=== PATIENT | female | born 1995 | race American Indian/Alaskan Native ===

== ENCOUNTER 2020-08-27 04:57 | Emergency (ER) | payer MEDICAID ==
[2020-08-27] MEDS ORDERED: ACETAMINOPHEN 325 MG TAB PO ONE (06:47)
[2020-08-27] MEDS ORDERED: ONDANSETRON 4 MG ODT TAB ONE (06:52)
[2020-08-27] MEDS ORDERED: ONDANSETRON 4 MG ODT TAB PO ONE (06:55)
[2020-08-27 07:48] LABS: Basophils % (Auto) 0.2 % (0.0-1.8); Hematocrit 37.8 % (30.3-42.9); Hemoglobin 12.4 gm/dl (10.1-14.3); Lymphocytes # (Auto) 1.4 K/mm3 (1.2-5.4); Lymphocytes % (Auto) 12.8 % (13.4-35.0); Mean Corpuscular HGB Conc 33 % (30-34); Mean Corpuscular Volume 81 fl (79-97); Monocytes % (Auto) 9.1 % (0.0-7.3); Platelet Count 265 K/mm3 (140-440); Red Blood Count 4.65 M/mm3 (3.65-5.03); Red Cell Distribution Width 14.5 % (13.2-15.2)
[2020-08-27 07:54] LABS: Alanine Aminotransferase 8 units/L (7-56); Albumin 4.2 g/dL (3.9-5); Blood Urea Nitrogen 7 mg/dL (7-17); Hemolysis Index 7
[2020-08-27 07:58] LABS: BUN/Creatinine Ratio 12
--- NOTE | 2020-08-27 08:19 | Emergency Department Report ---
ED Abdominal Pain HPI - General Chief Complaint: Abdominal Pain Stated Complaint: ABD PAIN/CHILLS/EMESIS Time Seen by Provider: 08/27/20 07:49 Source: patient Mode of arrival: Ambulatory Limitations: No Limitations - History of Present Illness Initial Comments: 25-year-old female with no significant past medical history presents to the ER today with complaints of abdominal pain. Patient states that her symptoms started Monday evening which was 2 days ago. She states that the pain is mainly left side of abdomen and lower abdomen and it had been constant and crampy in nature. She reports associated nausea and vomiting intermittently since Monday. She denies any associated diarrhea. She denies any UTI or vaginal symptoms. She states that her symptoms started after eating [place] food earlier that day. She does admit that the food tasted bad and stopped eating when she noticed that. She denies any fever or chills at home. She denies any hematemesis, melena, hematochezia or mucus in her stool. She denies any ill contacts or recent travel. She denies any cough or URI symptoms. Her last menstrual cycle was August 18 and was normal. She is not currently on control. She states that since she has been in the ER her symptoms have improved since receiving the Zofran and the Tylenol in triage. She has been sipping on some ice water and has been tolerating it well. MD Complaint: abdominal pain -: days(s) Location: LUQ, LLQ, RLQ, suprapubic Severity scale (0 -10): 5 - Related Data Previous Rx's Medication Instructions Recorded Last Taken Type Ibuprofen [Motrin] 800 mg PO Q8HR PRN #30 tablet 08/27/20 Unknown Rx Ondansetron [Zofran Odt] 4 mg PO Q8HR PRN #15 tab.rapdis 08/27/20 Unknown Rx cephALEXin [Keflex] 500 mg PO Q6HR #40 capsule 08/27/20 Unknown Rx Allergies Allergy/AdvReac Type Severity Reaction Status Date / Time No Known Allergies Allergy Unverified 08/27/20 06:40 ED Review of Systems ROS: Stated complaint: ABD PAIN/CHILLS/EMESIS Other details as noted in HPI Comment: All other systems reviewed and negative Constitutional: denies: chills, fever Eyes: denies: eye pain, eye discharge, vision change ENT: denies: ear pain, throat pain, dental pain, hearing loss, epistaxis, con gestion Respiratory: denies: cough, orthopnea, shortness of breath, SOB with exertion, SOB at rest, wheezing Cardiovascular: denies: chest pain, palpitations, dyspnea on exertion, edema, syncope, paroxysmal nocturnal dyspnea Gastrointestinal: abdominal pain, nausea, vomiting Genitourinary: denies: urgency, dysuria, discharge Musculoskeletal: denies: back pain, joint swelling, arthralgia Skin: denies: rash, lesions, change in color, change in hair/nails, pruritus Neurological: denies: headache, weakness, numbness, paresthesias, confusion, abnormal gait, vertigo Psychiatric: denies: anxiety, depression, auditory hallucinations, visual hallucinations, homicidal thoughts, suicidal thoughts Hematological/Lymphatic: denies: easy bleeding, easy bruising, swollen glands ED Past Medical Hx - Past Medical History Previous Medical History?: No - Surgical History Past Surgical History?: No - Medications Home Medications: Home Medications Medication Instructions Recorded Confirmed Last Taken Type Ibuprofen [Motrin] 800 mg PO Q8HR PRN #30 tablet 08/27/20 Unknown Rx Ondansetron [Zofran Odt] 4 mg PO Q8HR PRN #15 tab.rapdis 08/27/20 Unknown Rx cephALEXin [Keflex] 500 mg PO Q6HR #40 capsule 08/27/20 Unknown Rx ED Physical Exam - General Limitations: No Limitations General appearance: alert, in no apparent distress - Head Head exam: Present: atraumatic, normocephalic, normal inspection - Eye Eye exam: Present: normal appearance, PERRL, EOMI Pupils: Present: normal accommodation - ENT ENT exam: Present: normal exam, mucous membranes moist - Neck Neck exam: Present: normal inspection, full ROM. Absent: meningismus - Respiratory Respiratory exam: Present: normal lung sounds bilaterally. Absent: respiratory distress - Cardiovascular Cardiovascular Exam: Present: regular rate, normal rhythm, normal heart sounds - GI/Abdominal GI/Abdominal exam: Present: soft. Absent: distended, tenderness, guarding, rebound - Back Exam Back exam: Present: normal inspection, full ROM. Absent: CVA tenderness (R), CVA tenderness (L) - Neurological Exam Neurological exam: Present: alert, oriented X3, CN II-XII intact, normal gait - Psychiatric Psychiatric exam: Present: normal affect, normal mood - Skin Skin exam: Present: intact ED Course Vital Signs 08/27/20 08/27/20 08/27/20 06:41 06:56 09:02 Temperature 100.8 F H 98.5 F Pulse Rate 111 H 102 H Respiratory 20 20 15 Rate Blood Pressure 132/61 101/60 [Right] O2 Sat by Pulse 99 100 Oximetry ED Medical Decision Making - Lab Data Result diagrams: 08/27/20 06:54 08/27/20 06:54 - Medical Decision Making 0911: Labs reviewed - CBC/CMP unremarkable. HCG negative. UA + uti, culture pending Pt currently resting comfortably and reports feeling better. He has not had any vomiting since receiving the Zofran and triage upon arrival and she has been tolerating water well. She is not toxic or ill-appearing. She appears hydrated. She currently has a soft nontender abdomen and no CVA tenderness. Repeat value shows improvement of her tachycardia and a temperature. Her history, exam and diagnostic testing and current condition does not suggest acute appendicitis, acute cholecystitis, bowel perforation, diverticulitis, kidney stone, severe pyelonephritis, sepsis or any other significant pathology warranting further testing, continued ED treatment, admission or surgical evaluation at this point. Discussed lab results, diagnosis and treatment plan with patient Patient expressed understanding of instructions and agree with plan. Patient was stable at time of discharge. Critical care attestation.: If time is entered above; I have spent that time in minutes in the direct care of this critically ill patient, excluding procedure time. ED Disposition Clinical Impression: UTI (urinary tract infection) Disposition: DC-01 TO HOME OR SELFCARE Is pt being admited?: No Does the pt Need Aspirin: No Condition: Stable Instructions: Urinary Tract Infection, Adult, [id number], Abdominal Pain (ED) Additional Instructions: I recommend that you take the Keflex as prescribed and take it to completion. Take the Motrin and the Zofran as prescribed to help with pain. Recommend that you drink lots of water. Follow-up closely with your primary care doctor. Return to the ER if your symptoms changes or worsens in any way. Prescriptions: cephALEXin [Keflex] 500 mg PO Q6HR #40 capsule Ibuprofen [Motrin] 800 mg PO Q8HR PRN #30 tablet PRN Reason: Pain Ondansetron [Zofran Odt] 4 mg PO Q8HR PRN #15 tab.rapdis PRN Reason: Vomiting Referrals: CARMELO BRO MD [Staff Physician] - 3-5 Days Forms: Work/School Release Form(ED) Time of Disposition: 09:09
[2020-08-27 08:39] LABS: Bacteria,Urine 3+ /HPF (Negative); Bilirubin,Urine NEG (Negative); Blood,Urine MOD (Negative); Color,Urine Yellow (Yellow); Mucus,Urine 3+ /HPF
[2020-08-27] MEDS ORDERED: cephALEXin 500 MG CAP PO ONE (08:54)
[2020-08-27 09:03] VITALS: BP 101/60
== END 2020-08-27 09:15 | disposition home or self-care (01) ==
LOC: ED 04:57
DX: N39.0 Urinary tract infection, site not specified (principal); Z79.899 Other long term (current) drug therapy
CPT/HCPCS: 36415; 80053; 81001; 83690; 84703; 85025; 87076; 87086; 87186; 99283; Q0162

== ENCOUNTER 2021-09-04 01:19 | Emergency (ER) | payer MEDICAID ==
[2021-09-04 03:00] LABS: Basophils % (Auto) 0.5 % (0.0-1.8); Eosinophils % (Auto) 0.4 % (0.0-4.3); Hematocrit 38.4 % (30.3-42.9); Hemoglobin 12.6 gm/dl (10.1-14.3); Lymphocytes # (Auto) 1.5 K/mm3 (1.2-5.4); Lymphocytes % (Auto) 16.7 % (13.4-35.0); Mean Corpuscular HGB Conc 33 % (30-34); Mean Corpuscular Volume 80 fl (79-97); Monocytes # (Auto) 0.6 K/mm3 (0.0-0.8); Monocytes % (Auto) 6.5 % (0.0-7.3); Platelet Count 311 K/mm3 (140-440); Red Blood Count 4.82 M/mm3 (3.65-5.03); Red Cell Distribution Width 14.9 % (13.2-15.2)
[2021-09-04 03:16] LABS: Alanine Aminotransferase 9 units/L (7-56); Albumin 4.3 g/dL (3.9-5); Blood Urea Nitrogen 8 mg/dL (7-17); Calcium 9.6 mg/dL (8.4-10.2); Hemolysis Index 0
[2021-09-04 03:33] LABS: BUN/Creatinine Ratio 13
[2021-09-04 05:14] LABS: Bilirubin,Urine NEG (Negative); Blood,Urine MOD (Negative); Color,Urine Yellow (Yellow); Protein,Urine <15 mg/dL mg/dL (Negative); Urobilinogen,Urine < 2.0 mg/dL (<2.0)
[2021-09-04 05:16] LABS: Bacteria,Urine 1+ /HPF (Negative); Mucus,Urine 3+ /HPF
[2021-09-04] MEDS ORDERED: ONDANSETRON 4 MG/2 ML INJ IV ONE (07:38)
[2021-09-04] MEDS ORDERED: SODIUM CHLORIDE 0.9% 1000 ML 1,000 ML IV ONE (07:38)
[2021-09-04] MEDS ORDERED: MORPHINE 4 MG/1 ML INJ IV ONE (07:39)
--- NOTE | 2021-09-04 08:39 | Cat Scan Report ---
CT ABDOMEN AND PELVIS WITH IV CONTRAST INDICATION: abd/ pelvis radiating to right flank. COMPARISON: None available. TECHNIQUE: All CT scans at this facility use dose modulation, automated exposure control, iterative reconstructi on or weight based dosing, when appropriate, to reduce radiation dose to as low as reasonably achieva ble. FINDINGS: Lung Bases: No significant abnormality. Skeletal System: No acute abnormality. ABDOMEN: Liver: No significant abnormality. Gallbladder: No significant abnormality. Bile Ducts: No significant abnormality. Adrenals: No significant abnormality. Right Kidney: No significant abnormality. Left Kidney: No significant abnormality. Pancreas: No significant abnormality. Spleen: No significant abnormality. Upper GI tract: No significant abnormality. Lymph Nodes: No significant adenopathy. Aorta: No significant abnormality. Additional Findings: No significant abnormality. PELVIS: Colon: No significant abnormality. Urinary Bladder and Distal Ureters: No significant abnormality. Appendix: No significant abnormality. Lymph Nodes: No significant adenopathy. Additional Findings: Terminal ileum is unremarkable. IMPRESSION: 1. No acute process in the abdomen or pelvis. Signer Name: Sylvain Parada MD Signed: 09/04/2021 8:34 AM Workstation Name: [id number]
[2021-09-04] MEDS ORDERED: cefTRIAXone/NS 1 GM/50 ML 1 GM/50 ML BAG IV ONE (08:45)
--- NOTE | 2021-09-04 08:50 | Emergency Department Report ---
ED Abdominal Pain HPI - General Chief Complaint: Abdominal Pain Stated Complaint: ABD PAIN,CHILLS,CRAMPS,HEADACHE Source: patient Mode of arrival: Ambulatory Limitations: No Limitations - History of Present Illness Initial Comments: 26-year-old female presents to the ED complaining of abdominal pain x2 days. She states this pain is radiating to her right flank area. She complain of nausea and vomiting x2 days. Patient states that she has active vomiting 1 hour prior to me entering the room. Patient is alert and oriented x3. She states last menstrual cycle 1 week ago. Patient is states pain is a current 8 out of 10. Patient states pain is worse with urination. She denies any vaginal discharge or vaginal bleeding at present time. Patient is alert and oriented x3. No acute distress noted. No ill appearance noted. Onset/Timin -: Gradual, days(s) Location: diffuse Radiation: none Severity scale (0 -10): 8 Quality: aching Consistency: intermittent Improves With: nothing Worsens With: nothing Associated Symptoms: nausea, vomiting - Related Data Previous Rx's Medication Instructions Recorded Last Taken Type Ibuprofen [Motrin] 800 mg PO Q8HR PRN #30 tablet 08/27/20 Unknown Rx Ondansetron [Zofran Odt] 4 mg PO Q8HR PRN #15 tab.rapdis 08/27/20 Unknown Rx cephALEXin [Keflex] 500 mg PO Q6HR #40 capsule 08/27/20 Unknown Rx Dicyclomine [Bentyl] 20 mg PO QID 5 Days #20 tablet 09/04/21 Unknown Rx Promethazine [Phenergan] 25 mg PO Q6HR PRN 5 Days #20 tab 09/04/21 Unknown Rx Sulfamethoxazole/Trimethoprim 1 each PO BID 10 Days #20 tab 09/04/21 Unknown Rx [Bactrim DS TAB] Allergies Allergy/AdvReac Type Severity Reaction Status Date / Time No Known Allergies Allergy Unverified 08/27/20 06:40 ED Review of Systems ROS: Stated complaint: ABD PAIN,CHILLS,CRAMPS,HEADACHE Other details as noted in HPI Constitutional: denies: chills, fever Eyes: denies: eye pain, eye discharge, vision change ENT: denies: ear pain, throat pain Respiratory: denies: cough, shortness of breath, wheezing Cardiovascular: denies: chest pain, palpitations Endocrine: no symptoms reported Gastrointestinal: abdominal pain, nausea, vomiting. denies: diarrhea Genitourinary: dysuria. denies: urgency, discharge Musculoskeletal: denies: back pain, joint swelling, arthralgia Skin: denies: rash, lesions Neurological: denies: headache, weakness, paresthesias Psychiatric: denies: anxiety, depression Hematological/Lymphatic: denies: easy bleeding, easy bruising ED Past Medical Hx - Medications Home Medications: Home Medications Medication Instructions Recorded Confirmed Last Taken Type Ibuprofen [Motrin] 800 mg PO Q8HR PRN #30 tablet 08/27/20 Unknown Rx Ondansetron [Zofran Odt] 4 mg PO Q8HR PRN #15 tab.rapdis 08/27/20 Unknown Rx cephALEXin [Keflex] 500 mg PO Q6HR #40 capsule 08/27/20 Unknown Rx Dicyclomine [Bentyl] 20 mg PO QID 5 Days #20 tablet 09/04/21 Unknown Rx Promethazine [Phenergan] 25 mg PO Q6HR PRN 5 Days #20 tab 09/04/21 Unknown Rx Sulfamethoxazole/Trimethoprim 1 each PO BID 10 Days #20 tab 09/04/21 Unknown Rx [Bactrim DS TAB] ED Physical Exam - General Limitations: No Limitations General appearance: alert, in no apparent distress - Head Head exam: Present: atraumatic, normocephalic - Eye Eye exam: Present: normal appearance - ENT ENT exam: Present: mucous membranes moist - Neck Neck exam: Present: normal inspection - Respiratory Respiratory exam: Present: normal lung sounds bilaterally. Absent: respiratory distress - Cardiovascular Cardiovascular Exam: Present: regular rate, normal rhythm. Absent: systolic murmur, diastolic murmur, rubs, gallop - GI/Abdominal GI/Abdominal exam: Present: soft, tenderness, normal bowel sounds - Extremities Exam Extremities exam: Present: normal inspection - Back Exam Back exam: Present: normal inspection - Neurological Exam Neurological exam: Present: alert, oriented X3 - Psychiatric Psychiatric exam: Present: normal affect, normal mood - Skin Skin exam: Present: warm, dry, intact, normal color. Absent: rash ED Course Vital Signs 09/04/21 09/04/21 01:55 07:25 Temperature 99.5 F 98.8 F Pulse Rate 104 H 104 H Respiratory 18 18 Rate Blood Pressure 140/87 Blood Pressure 124/90 [Left] O2 Sat by Pulse 97 100 Oximetry ED Medical Decision Making - Lab Data Result diagrams: 09/04/21 02:35 09/04/21 02:35 - Medical Decision Making 26-year-old female presents to the ED complaining of abdominal pain x2 days. She states this pain is radiating to her right flank area. She complain of nausea and vomiting x2 days. Patient states that she has active vomiting 1 hour prior to me entering the room. Patient is alert and oriented x3. She states last menstrual cycle 1 week ago. Patient is states pain is a current 8 out of 10. Patient states pain is worse with urination. She denies any vaginal discharge or vaginal bleeding at present time. Patient is alert and oriented x3. No acute distress noted. No ill appearance noted. Physical examination patient has tenderness in all 4 quadrants. Morphine 4 mg given IV Zofran 4 mg given IV. 1 L normal saline given. Ceftin 1 g given IV any ED for urinary tract infection. Rechecked the patient is resting quietly quietly and comfortable and feeling better. I discussed the results of diagnostic study, my clinical impression and the plan for further treatment with the patient. Patient agrees with plan and d ischarge at this present time. All question addressed. I have given the patient instruction regarding a diagnosis ,expectation ,follow- up and return precaution. I explained to the patient that emergent condition may arise and to return to the ED for new worsen and any new persisting condition. I have explained the importance of following up with the primary care physician or referral physician listed below has instructed. The patient verbalized understanding of discharge instruction. Abnormal Lab Results 09/04/21 09/04/21 09/04/21 02:35 02:35 02:35 WBC 9.2 RBC 4.82 Hgb 12.6 Hct 38.4 MCV 80 MCH 26 L MCHC 33 RDW 14.9 Plt Count 311 Lymph % (Auto) 16.7 [place] % (Auto) 6.5 Eos % (Auto) 0.4 Baso % (Auto) 0.5 Lymph # (Auto) 1.5 [place] # (Auto) 0.6 Eos # (Auto) 0.0 Baso # (Auto) 0.0 Seg Neutrophils % 75.9 H Seg Neutrophils # 7.0 Sodium 140 Potassium 3.9 Chloride 104.4 Carbon Dioxide 25 Anion Gap 15 BUN 8 Creatinine 0.6 Estimated GFR > 60 BUN/Creatinine Ratio 13 Glucose 127 H Calcium 9.6 Total Bilirubin 0.30 AST 16 ALT 9 Alkaline Phosphatase 101 Total Protein 7.4 Albumin 4.3 Albumin/Globulin Ratio 1.4 HCG, Qual Negative Urine Color Urine Turbidity Urine pH Ur Specific [place] Urine Protein Urine Glucose (UA) Urine Ketones Urine Blood Urine Nitrite Urine Bilirubin Urine Urobilinogen Ur Leukocyte Esterase Urine WBC (Auto) Urine RBC (Auto) U Epithel Cells (Auto) Urine Bacteria (Auto) Urine WBC Clumps Urine Mucus 09/04/21 Unknown WBC RBC Hgb Hct MCV MCH MCHC RDW Plt Count Lymph % (Auto) [place] % (Auto) Eos % (Auto) Baso % (Auto) Lymph # (Auto) [place] # (Auto) Eos # (Auto) Baso # (Auto) Seg Neutrophils % Seg Neutrophils # Sodium Potassium Chloride Carbon Dioxide Anion Gap BUN Creatinine Estimated GFR BUN/Creatinine Ratio Glucose Calcium Total Bilirubin AST ALT Alkaline Phosphatase Total Protein Albumin Albumin/Globulin Ratio HCG, Qual Urine Color Yellow Urine Turbidity Cloudy Urine pH 5.0 Ur Specific [place] 1.016 Urine Protein <15 mg/dl Urine Glucose (UA) Neg Urine Ketones Neg Urine Blood Mod Urine Nitrite Neg Urine Bilirubin Neg Urine Urobilinogen < 2.0 Ur Leukocyte Esterase Lg Urine WBC (Auto) 144.0 H Urine RBC (Auto) 12.0 U Epithel Cells (Auto) 10.0 Urine Bacteria (Auto) 1+ Urine WBC Clumps Few Urine Mucus 3+ Critical care attestation.: If time is entered above; I have spent that time in minutes in the direct care of this critically ill patient, excluding procedure time. ED Disposition Clinical Impression: Acute urinary tract infection Disposition: HOME / SELF CARE / HOMELESS Is pt being admited?: No Does the pt Need Aspirin: No Condition: Stable Instructions: Abdominal Pain (ED), Urinary Tract Infection, Adult, [id number] Additional Instructions: Take medication as prescribed Return to the ED for any worsening symptom Prescriptions: Sulfamethoxazole/Trimethoprim [Bactrim DS TAB] 1 each PO BID 10 Days #20 tab Dicyclomine [Bentyl] 20 mg PO QID 5 Days #20 tablet Promethazine [Phenergan] 25 mg PO Q6HR PRN 5 Days #20 tab PRN Reason: Nausea Referrals: [facility] [Provider Group] - 3-5 Days Forms: Work/School Release Form(ED) Time of Disposition: 09:08
[2021-09-04 09:45] VITALS: BP 117/74
== END 2021-09-04 09:11 | disposition home or self-care (01) ==
LOC: ED 01:19
DX: N39.0 Urinary tract infection, site not specified (principal)
CPT/HCPCS: 36415; 74177; 80053; 81001; 84703; 85025; 96361; 96365; 96375; 99284; J0696; J2270; J2405; J7030; Q9967

== ENCOUNTER 2021-09-06 03:15 | Emergency (ER) | payer MEDICAID ==
[2021-09-06] MEDS ORDERED: KETOROLAC 10 MG TAB PO ONE (07:24)
--- NOTE | 2021-09-06 07:29 | Emergency Department Report ---
ED Abdominal Pain HPI - General Chief Complaint: Abdominal Pain Stated Complaint: RT SIDE ABD PAIN Time Seen by Provider: 09/06/21 07:14 Source: patient Mode of arrival: Stretcher Limitations: No Limitations - History of Present Illness Initial Comments: 26-year-old black female with no past medical history presents to the emergency department for evaluation of abdominal pain and lower back pain. She states that she has had several day history of abdominal pain, was seen here on 7 2, discharged home with medications for urinary tract infection, but states that she has not had any improvement in symptoms. She states that she is having pain to her entire abdominal area, pain is described as an achy type pain that she rates 8 on a 10 point scale that is associated with some nausea and vomiting. She denies fever, diarrhea, dysuria, and vaginal discharge. MD Complaint: abdominal pain -: Gradual, days(s) Location: diffuse Radiation: back Migration to: no migration Severity: severe Severity scale (0 -10): 8 Quality: aching Consistency: constant Associated Symptoms: nausea, vomiting. denies: diarrhea, fever, chills, dysuria, hematemesis, hematochezia, melena, hematuria, anorexia, syncope - Related Data LMP Date: 09/26/21 Previous Rx's Medication Instructions Recorded Last Taken Type Ibuprofen [Motrin] 800 mg PO Q8HR PRN #30 tablet 08/27/20 Unknown Rx Ondansetron [Zofran Odt] 4 mg PO Q8HR PRN #15 tab.rapdis 08/27/20 Unknown Rx cephALEXin [Keflex] 500 mg PO Q6HR #40 capsule 08/27/20 Unknown Rx Dicyclomine [Bentyl] 20 mg PO QID 5 Days #20 tablet 09/04/21 Unknown Rx Promethazine [Phenergan] 25 mg PO Q6HR PRN 5 Days #20 tab 09/04/21 Unknown Rx Sulfamethoxazole/Trimethoprim 1 each PO BID 10 Days #20 tab 09/04/21 Unknown Rx [Bactrim DS TAB] Ketorolac [Toradol] 10 mg PO Q6H PRN #12 tab 09/06/21 Unknown Rx Ondansetron [Zofran Odt] 4 mg PO Q8HR PRN #12 tab.rapdis 09/06/21 Unknown Rx Allergies Allergy/AdvReac Type Severity Reaction Status Date / Time No Known Allergies Allergy Unverified 08/27/20 06:40 ED Review of Systems ROS: Stated complaint: RT SIDE ABD PAIN Other details as noted in HPI Comment: All other systems reviewed and negative Constitutional: denies: chills, fever Eyes: denies: vision change ENT: denies: congestion Respiratory: denies: shortness of breath Cardiovascular: denies: chest pain, palpitations Gastrointestinal: abdominal pain, nausea, vomiting. denies: diarrhea, hematemesis, melena, hematochezia Genitourinary: denies: urgency, dysuria, frequency, hematuria, discharge Musculoskeletal: back pain Neurological: denies: headache, weakness Psychiatric: denies: anxiety, depression ED Past Medical Hx - Past Medical History Previous Medical History?: No - Surgical History Past Surgical History?: No - Social History Smoking Status: Never Smoker Substance Use Type: None - Medications Home Medications: Home Medications Medication Instructions Recorded Confirmed Last Taken Type Ibuprofen [Motrin] 800 mg PO Q8HR PRN #30 tablet 08/27/20 Unknown Rx Ondansetron [Zofran Odt] 4 mg PO Q8HR PRN #15 tab.rapdis 08/27/20 Unknown Rx cephALEXin [Keflex] 500 mg PO Q6HR #40 capsule 08/27/20 Unknown Rx Dicyclomine [Bentyl] 20 mg PO QID 5 Days #20 tablet 09/04/21 Unknown Rx Promethazine [Phenergan] 25 mg PO Q6HR PRN 5 Days #20 tab 09/04/21 Unknown Rx Sulfamethoxazole/Trimethoprim 1 each PO BID 10 Days #20 tab 09/04/21 Unknown Rx [Bactrim DS TAB] Ketorolac [Toradol] 10 mg PO Q6H PRN #12 tab 09/06/21 Unknown Rx Ondansetron [Zofran Odt] 4 mg PO Q8HR PRN #12 tab.rapdis 09/06/21 Unknown Rx ED Physical Exam - General Limitations: No Limitations General appearance: alert, in no apparent distress - Head Head exam: Present: atraumatic, normocephalic - Eye Eye exam: Present: normal appearance. Absent: conjunctival injection, periorbital swelling - ENT ENT exam: Present: normal exam - Neck Neck exam: Present: normal inspection - Respiratory Respiratory exam: Present: normal lung sounds bilaterally. Absent: respiratory distress, wheezes, rales, rhonchi, stridor, chest wall tenderness - Cardiovascular Cardiovascular Exam: Present: regular rate, normal heart sounds - GI/Abdominal GI/Abdominal exam: Present: soft, normal bowel sounds. Absent: distended, tenderness, guarding, rebound, rigid - Extremities Exam Extremities exam: Present: normal inspection, normal capillary refill. Absent: pedal edema, joint swelling, calf tenderness - Back Exam Back exam: Present: normal inspection, tenderness (Bilateral lower). Absent: CVA tenderness (R), CVA tenderness (L), vertebral tenderness - Neurological Exam Neurological exam: Present: alert, oriented X3, CN II-XII intact, normal gait - Psychiatric Psychiatric exam: Present: normal affect, normal mood - Skin Skin exam: Present: warm, dry, intact, normal color ED Course Vital Signs 09/06/21 03:15 Temperature 98 F Pulse Rate 78 Respiratory 18 Rate Blood Pressure 126/78 O2 Sat by Pulse 100 Oximetry ED Medical Decision Making - Medical Decision Making 26-year-old black female with no past medical history presents to the emergency department for evaluation of abdominal pain and lower back pain. She states that she has had several day history of abdominal pain, was seen here on 09/04, discharged home with medications for urinary tract infection, but states that she has not had any improvement in symptoms. She states that she is having pain to her entire abdominal area, pain is described as an achy type pain that she rates 8 on a 10 point scale that is associated with some nausea and vomiting. She denies fever, diarrhea, dysuria, and vaginal discharge Physical exam unremarkable. Pain mostly resolved after medication. Patient had CT of the abdomen and pelvis on her visit 2 days ago which showed no acute abnormalities along with lab work that was unremarkable. Urine was retested today and noted to have significant improvement. Given the fact that urine is improving, she is advised to continue Bactrim as previously prescribed. She will be discharged home with Toradol to use as needed for pain along with Zofran as needed for nausea. She is advised to increase intake of noncaffeinated fluids. She is advised to follow-up with her primary care provider for worsening symptoms or return to the emergency department as needed. She verbalizes understanding of and agreement with plan of care. Laboratory Results - last 24 hr 09/06/21 07:39 Urine Color Yellow Urine Turbidity Clear Urine pH 7.5 H Ur Specific [place] 1.015 Urine Protein <15 mg/dl Urine Glucose (UA) Negative Urine Ketones 80 Urine Blood Negative Urine Nitrite Negative Ur Reducing Substances Not Reportable Urine Bilirubin Negative Urine Ictotest Not Reportable Urine Urobilinogen < 2.0 Ur Leukocyte Esterase Small Urine WBC (Auto) 23.0 H Urine RBC (Auto) 45.0 U Epithel Cells (Auto) 5.0 Urine Mucus Few Critical care attestation.: If time is entered above; I have spent that time in minutes in the direct care of this critically ill patient, excluding procedure time. ED Disposition Clinical Impression: UTI (urinary tract infection) Qualifiers: Urinary tract infection type: acute cystitis Hematuria presence: without hematuria Qualified Code(s): N30.00 - Acute cystitis without hematuria Disposition: HOME / SELF CARE / HOMELESS Is pt being admited?: No Does the pt Need Aspirin: No Condition: Stable Instructions: Abdominal Pain (ED), Antibiotic Medicine, Adult, [id number], Urinary Tract Infection, Adult, [id number] Additional Instructions: Continue Bactrim as previously prescribed 2 days ago. Start Toradol and Zofran as needed for pain and nausea. Increase your intake of noncaffeinated fluids. Follow-up with your primary care provider if no improvement or worsening symptoms. Return to the emergency department as needed. Prescriptions: Ketorolac [Toradol] 10 mg PO Q6H PRN #12 tab PRN Reason: Pain Ondansetron [Zofran Odt] 4 mg PO Q8HR PRN #12 tab.rapdis PRN Reason: Nausea And Vomiting Referrals: CARMELO BRO MD [Staff Physician] - 3-5 Days Forms: Work/School Release Form(ED) Time of Disposition: 08:46
[2021-09-06 08:23] LABS: Mucus,Urine FEW /HPF
[2021-09-06 08:28] LABS: Color,Urine Yellow (Yellow)
[2021-09-06 08:29] LABS: Bilirubin,Urine Negative (Negative); Blood,Urine Negative (Negative); PH,Urine 7.5 (5.0-7.0)
[2021-09-06 08:30] LABS: Protein,Urine <15 mg/dL mg/dL (Negative); Urobilinogen,Urine < 2.0 mg/dL (<2.0)
[2021-09-06 08:52] VITALS: BP 128/76
== END 2021-09-06 09:34 | disposition home or self-care (01) ==
LOC: ED 03:15
DX: N39.0 Urinary tract infection, site not specified (principal)
CPT/HCPCS: 81001; 87086; 99284

== ENCOUNTER 2021-11-27 07:36 | Emergency (ER) | payer MEDICAID | END 2021-11-27 08:00 | disposition left against medical advice (07) | LOC: ED 07:36 | DX: R10.9 Unspecified abdominal pain (principal); Z53.21 Procedure and treatment not carried out due to patient leaving prior to being seen by health care provider ==